=== PATIENT | female | born 1990 | race Caucasian/White ===

== ENCOUNTER 2018-02-02 14:00 | Observation (INO) | payer MEDICAID ==
[2018-02-02 15:38] LABS: ADD MAN DIFF? NO
[2018-02-02 15:42] LABS: WHITE BLOOD COUNT 7.9 10^3/ul (4.8-10.8)
[2018-02-02 15:42] LABS: BASOPHILS % 0.5 % (0.0-2.0); EOSINOPHILS # 0.1 10^3/ul (0.0-0.5); EOSINOPHILS % 1.3 % (0.0-7.0); HEMOGLOBIN 13.7 g/dl (12.0-16.0); LYMPHOCYTES # 2.1 10^3/ul (0.8-2.9); LYMPHOCYTES % 26.5 % (15.0-51.0); MEAN CORPUSCULAR HEMOGLOBIN 30.3 pg (29.0-33.0); MEAN CORPUSCULAR HGB CONC 34.3 g/dl (32.0-37.0); MEAN CORPUSCULAR VOLUME 88.5 fl (82.0-101.0); MEAN PLATELET VOLUME 8.7 fl (7.4-10.4); MONOCYTE # 0.4 10^3/ul (0.3-0.9); MONOCYTES % 5.6 % (0.0-11.0); NEUTROPHIL # 5.2 10^3/ul (1.6-7.5); NEUTROPHILS % 65.8 % (39.0-77.0); PLATELET COUNT 289 10^3/UL (140-415); RED BLOOD COUNT 4.52 10^6/ul (4.20-5.40); RED CELL DISTRIBUTION WIDTH 13.2 % (11.5-14.5)
[2018-02-02 15:56] LABS: ADD UMIC YES; UR ASCORBIC ACID NEGATIVE (NEGATIVE); UR BILIRUBIN (Dip) NEGATIVE (NEGATIVE); UR BLOOD (Dip) 3+ mg/dL (NEGATIVE); UR CLARITY CLEAR (CLEAR); UR COLOR YELLOW (YELLOW); UR GLUCOSE (Dip) NEGATIVE (NEGATIVE); UR KETONES (Dip) NEGATIVE (NEGATIVE); UR LEUKOCYTE ESTERASE (Dip) TRACE Leu/ul (NEGATIVE); UR MUCUS FEW /HPF (NONE SEEN); UR NITRITE (Dip) NEGATIVE (NEGATIVE); UR RBC 25 /HPF (0-5); UR SPECIFIC GRAVITY (Dip) 1.019 (1.003-1.030); UR SQUAMOUS EPITHELIAL CELL FEW /HPF (FEW); UR TOTAL PROTEIN (Dip) NEGATIVE (NEGATIVE); UR UROBILINOGEN (Dip) NEGATIVE (NEGATIVE); UR WBC 2 /HPF (0-5)
[2018-02-02] MEDS ORDERED: PROPOFOL 20 ML (20:29)
[2018-02-02] MEDS ORDERED: LIDOCAINE 2% (SDV) 5 ML INJ (20:29)
[2018-02-02] MEDS ORDERED: MEPERIDINE 100 MG INJ (20:32)
[2018-02-02] MEDS ORDERED: CEFAZOLIN 1 GM INJ (20:39)
[2018-02-02] MEDS ORDERED: ONDANSETRON 4 MG INJ (20:39)
[2018-02-02] MEDS ORDERED: METOCLOPRAMIDE 10 MG INJ (20:39)
[2018-02-02] MEDS ORDERED: DIPHENHYDRAMINE 50 MG INJ IV (21:30)
[2018-02-02] MEDS ORDERED: EPHEDrine SULFATE 50 MG/5 ML SYG IV (21:30)
[2018-02-02] MEDS ORDERED: LABETALOL HCL 20MG INJ IV (21:30)
[2018-02-02] MEDS ORDERED: MEPERIDINE 25 MG INJ IV (21:30)
[2018-02-02] MEDS ORDERED: METOCLOPRAMIDE 10 MG INJ IV (21:30)
[2018-02-02] MEDS ORDERED: ONDANSETRON 4 MG INJ IV (21:30)
[2018-02-02] MEDS ORDERED: hydrALAzine 20 MG INJ IV (21:30)
[2018-02-02] MEDS ORDERED: MIDAZOLAM 1 MG/ML 2 ML INJ IV (21:30)
[2018-02-02] MEDS ORDERED: FENTAnyl 50 MCG/ML VIAL IV ×3 (21:30)
[2018-02-02] MEDS ORDERED: OXYCODONE/ACETAMINOPHEN (5/325) TAB PO ×2 (21:30)
[2018-02-02] MEDS ORDERED: HYDROmorphONE 1 MG/5 ML IV SYRINGE IV ×3 (21:30)
== END 2018-02-03 10:15 | disposition home or self-care (01) ==
LOC: FTE 14:00 → MS2 17:33
PROVIDERS: Obstetrics & Gynecology
DX: O02.1 Missed abortion (principal)
CPT/HCPCS: 36415; 59820; 76801; 81001; 84702; 85025; 86900; 86901; 88305; 99285-25